=== PATIENT | male | born 1970 | race Caucasian/White ===

== ENCOUNTER 2025-05-15 16:53 | Emergency (ER) | payer BC, SELFPAY ==
--- NOTE | 2025-05-15 16:55 | ED.EYEPROB ---
HPI - Eye Problem General Chief complaint: Eye Problems Stated complaint: eye irritation Source: patient and RN notes reviewed Mode of arrival: ambulatory Limitations: no limitations History of Present Illness HPI Narrative: Patient is a 54-year-old male with complaints of left eye irritation since yesterday. Patient states that he woke up this morning with a large reddened bump to his left upper eyelid along with some crusting to the eye. Patient states that prior to this, he had a little redness noted to bilateral eyes for a couple days. He denies vision changes. Related Data Allergies Allergy/AdvReac Type Severity Reaction Status Date / Time morphine Allergy Mild Rash Verified 05/15/25 17:04 Review of Systems Review of Systems: CONSTITUTIONAL: Denies fever, chills, or sweats. EYES: Reports left eye irritation and discharge. ENT: Denies otalgia and sore throat CARDIOVASCULAR: Denies chest pain, palpitations, or edema. RESPIRATORY: Denies cough or dyspnea. GASTROINTESTINAL: Denies abdominal pain, nausea, vomiting, or diarrhea. GENITOURINARY: Denies dysuria or hematuria. SKIN: Denies rash or itching. MUSCULOSKELETAL: Denies back pain, joint pain, or myalgia. NEUROLOGIC: Denies headache, numbness, or weakness. Pertinent positives per HPI. PMFSH Comments At the time of my signature, I reviewed and agree with the nursing past medical, surgical, social, and family history. There is no relevant family history pertinent to the patient complaint. Exam Narrative: GENERAL: This is a well-nourished, well-developed patient, in no apparent distress. HEAD: normocephalic, atraumatic. EYES: Hordeolum to left upper eyelid. Sclera clear/white. Vision is grossly intact. EARS: External ears normal. Hearing grossly intact. NOSE: External nose normal with no obvious nasal discharge, nares without redness, no rhinorrhea. THROAT: Mucous membranes moist, posterior pharynx clear. NECK: Neck supple, non-tender without lymphadenopathy, masses or thyromegaly. CARDIOVASCULAR: Regular rate and rhythm without murmurs, gallops, or rubs. RESPIRATORY: Clear to auscultation. Breath sounds equal bilaterally. No wheezes, rales, or rhonchi. GASTROINTESTINAL: Abdomen soft, non-tender, nondistended. Bowel sounds are active. No hepato-splenomegaly, or palpable masses. No guarding. SKIN: warm, intact with no suspicious lesions or rash, good texture and turgor. NEURO: awake, alert, and oriented to person, place and time. There were no obvious focal neurologic abnormalities. Course Course Level of Care: Express Care Visit Vital Signs Vital signs: Vital Signs Temperature 97.8 F 05/15/25 17:04 Pulse Rate 72 05/15/25 17:04 Respiratory Rate 18 05/15/25 17:04 Blood Pressure 133/81 05/15/25 17:04 Pulse Oximetry 97 05/15/25 17:04 Oxygen Delivery Room Air 05/15/25 17:04 Temperature 97.8 F 05/15/25 17:04 Pulse Rate 72 05/15/25 17:04 Respiratory Rate 18 05/15/25 17:04 Blood Pressure 133/81 05/15/25 17:04 Pulse Oximetry 97 05/15/25 17:04 Oxygen Delivery Room Air 05/15/25 17:04 Reviewed MDM - Eye Problem MDM Narrative Medical decision making narrative: Eye drops as prescribed. -Do this for 3 to 4 days until all redness and discharge has disappeared. -Cold compresses to the affected eye for comfort -May need warm compresses to remove debris in the morning -When cleaning the eyes used a washcloth/cotton ball in one direction then change washcloths/cotton ball before using it on another eye. -Do not share medicine--do not touch the eye with the medicine -Alternate or take Tylenol or ibuprofen as directed in the bottle for pain -Avoid screen time--television, computer, tablet or phone. Follow-up with PCP or warehouse inventory clerk if condition is not improving in 3-5days or sooner if you have new symptoms/concerns. Differential Diagnosis Differential diagnosis: Likely corneal abrasion, conjunctivitis, acute iritis and other (stye) Critical Care Time Critical Care Time Critical Care Time: No Discharge Plan Discharge Clinical Impression: Hordeolum externum left upper eyelid Patient Disposition: Home Condition: Stable Instructions: Fabiana (ED) Additional Instructions: Eye ointment as prescribed. -Do this for 3 to 4 days until all redness and discharge has disappeared. -Cold compresses to the affected eye for comfort -May need warm compresses to remove debris in the morning -When cleaning the eyes used a washcloth/cotton ball in one direction then change washcloths/cotton ball before using it on another eye. -Do not share medicine--do not touch the eye with the medicine -Alternate or take Tylenol or ibuprofen as directed in the bottle for pain -Avoid screen time--television, computer, tablet or phone. Follow-up with PCP or warehouse inventory clerk if condition is not improving in 3-5days or sooner if you have new symptoms/concerns. Patient Language: Kiswahili Prescriptions: New erythromycin 5 mg/gram (0.5 %) ointment 1 applic LEFT EYE DAILY Qty: 3.5 0RF Follow-up/Referrals: Kim,Mabel Last, CLERK [Primary Care Provider] - Time of Disposition: 17:12
--- OUTSIDE RECORDS SUMMARY | 2025-05-15 16:56 | XMS_ITS | Clinical Summary ---
Author Organization [facility] Address [address] [place] [address] Care Team Providers Care Carbon Paper Interleafer Name Role Phone Mabel Alvarez EDGING MACHINE FEEDER Primary Care Provider Allergies Active Allergy Reactions Criticality Noted Date Comments Morphine Hives,Rash Low 09/12/2013 Medications ferrous sulfate, 65 mg elemental, 325 (65 FE) MG tabletIndication s:Iron deficiency Take 1 tablet (325 mg total) by mouth daily with breakfast. 90 tablet 3 03/20/2025 Active Active Problems Problem Noted Date Diagnosed Date Dyslipidemia 12/31/2023 Obesity (BMI 30-39.9) 12/31/2023 Dermatitis 02/10/2018 Resolved Problems Problem Noted Date Diagnosed Date Resolved Date Wears glasses 02/10/2018 07/13/2020 Mild sleep apnea 08/04/2017 11/15/2020 Rosacea 09/04/2014 12/25/2023 Hyperhidrosis 09/12/2013 12/25/2023 Encounters Date Type Department Care Team Description 03/20/2025 Results Follow-Up [facility] Family & Internal Medicine - [place] [address] [place] [address] Mabel Alvarez NP VITAMIN B12 / FOLATE, IRON SAT PANEL (IRON,IBC,%SAT) 03/08/2025 12:36 PM CDT - 03/08/2025 11:59 PM CDT Hospital Encounter [facility] [address] [place] [address] Mabel Alvarez NP Discharge Disposition: Home or Self Care (Routine Discharge) 03/08/2025 7:30 AM CDT Laboratory Only [address] [address] Mabel Alvarez NP 03/08/2025 Travel 03/07/2025 Results Follow-Up [address] [address] Mabel Alvarez NP TESTOSTERONE, FREE & TOTAL, LIPID PANEL, CBC W/DIFF AUTOMATED, COMPREHENSIVE METABOLIC PANEL 03/01/2025 1:20 PM CDT - 03/01/2025 11:59 PM CDT Hospital Encounter [facility] [address] [place] [id number] Mabel Alvarez NP Discharge Disposition: Home or Self Care (Routine Discharge) 03/01/2025 7:30 AM CDT Laboratory Only [address] [phone] Mabel Alvarez NP 03/01/2025 Travel 02/22/2025 10:00 AM CDT Office Visit [address] [phone] Mabel Alvarez NP Follow Up (Requesting labs ) 02/22/2025 Travel from Last 3 Months Immunizations Immunization Administration Dates Next Due Fluzone 6 Months+ Quad (0.5 mL Prefilled Syringe) 01/02/2020(Deferred: Patient Refused) Influenza (Generic) 09/23/2014 Influenza Adult (Generic) 01/31/2021,01/05/2020 Tdap (Adacel) 01/02/2020 Tdap (Generic) 09/24/2013 Family History Medical History Relation Comments Parkinson's Disease Father No Known Problems Mother Relation Status Comments Father Mother Social History Tobacco Use Types Packs/Day Years Used Date Smoking Tobacco: Former Cigarettes Q uit: 11/02/1995 Smokeless Tobacco: Never Tobacco Cessation:Counseling Given: Not Answered Alcohol Use Standard Drinks/Week Comments Yes 1.7 (1 standard drink = 0.6 oz p ure alcohol) Socially PHQ-2 Answer Date Recorded Patient Health Questionnaire-2 Score 0 02/22/2025 Sex and Gender Information Value Date Recorded Sex Assigned at Male 02/22/2025 9:55 AM CDT Legal Sex Male 7:54 PM CDT Gender Identity Not on file Sexual Orientation Not on file Last Filed Vital Signs Vital Sign Reading Time Taken Comments Blood Pressure 136/88 02/22/2025 9:54 AM CDT Pulse 70 02/22/2025 9:54 AM CDT Temperature 37.1 C (98.8 F) 02/22/2025 9:54 AM CDT Respiratory Rate 18 02/22/2025 9:54 AM CDT Oxygen Saturation 98% 02/22/2025 9:54 AM CDT Inhaled Oxygen Concentration - - Weight 115.7 kg (255 lb) 02/22/2025 9:54 AM CDT Height 190.5 cm (6' 3) 02/22/2025 9:54 AM CDT Body Mass Index 31.87 02/22/2025 9:54 AM CDT Plan of Treatment Upcoming Encounters Date Type Department Care Team (Late st Contact Info) Description 07/04/2025 7:20 AM CDT Office Visit [facility] Family & Internal Medicine - [address] [phone] Mabel Alvarez, LUIGI [id number] [place] [address] Health Maintenance Due Date Last Done Comments Zoster Vaccines (1 of 2) 2022 Annual Physical 02/22/2026 02/22/2025, 12/25/2023, 09/02/2021 COVID-19 Vaccine ( - 2023-2 5 season) 2026 11/09/2020, 10/19/2020 Postponed from 07/03/2024 (Patient Refused) Hepatitis B Vaccines (1 of 3 - 19+ 3-dose series) 02/22/2026 Postponed from 08/02 (Patient/Guardian Refusal) Pneumococcal Vaccine: 50+ Years (1 of 1 - PCV) 02/22/2026 Postponed from 08/02 (Patient/Guardian Refusal) Colorectal Cancer Screening FIT-DNA (3 Years) 01/30/2027 01/31/2024, 01/31/2024, 01/10/2020 DTaP, Tdap and Td Vaccines ( 3 - Td or Tdap) 01/01/2030 01/02/2020, 09/24/2013 Hepatitis C Completed 12/25/2023 PHQ-2 (Physician [place]) Completed 02/22/2025 Meningococcal B Vaccine Aged Out No l onger eligible based on patient's age to complete this topic Meningococcal Vaccine Aged Out No jacoby laura eligible based on patient's age to complete this topic RSV Immunizations Under 20 Months Aged Out No longer eligible b ased on patient's age to complete this topic Procedures Procedure Name Priority Date/Time Associated Diagnosis Comments COLLECTION VENOUS BLOOD VENIPUNCTURE Routine 03/08/2025 7:30 AM CDT Anemia, unspecified type IRON SAT PANEL (IRON,IBC,%SAT) Routine 03/08/2025 7:25 AM CDT Anemia, unspecified type VITAMIN B12 / FOLATE Routine 03/08/2025 7:25 AM CDT Anemia, unspecified type COLLECTION VENOUS BLOOD VENIPUNCTURE Routine 03/01/2025 7:39 AM CDT Encounter for preventative adult health care examination Obesity (BMI 30-39.9) Dyslipidemia Other fatigue COMPREHENSIVE METABOLIC PANEL Routine 03/01/2025 7:30 AM CDT Encounter for preventative adult health care examination Other fatigue Obesity (BMI 30-39.9) CBC W/DIFF AUTOMATED Routine 03/01/2025 7:30 AM CDT Encounter for preventative adult health care examination Other fatigue Obesity (BMI 30-39.9) LIPID PANEL Routine 03/01/2025 7:30 AM CDT Encounter for preventative adult health care examination Dyslipidemia Other fatigue Obesity (BMI 30-39.9) HC TESTOSTERONE FREE-90 Routine 03/01/2025 7:30 AM CDT Encounter for preventative adult health care examination Other fatigue Obesity (BMI 30-39.9) COLOGUARD (EXACT SCIENCE) Routine 01/31/2024 12:20 PM CDT Screening for colorectal cancer HEPATITIS C ANTIBODY Routine 12/25/2023 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 Encounter for hepatitis C screening test for low risk patient from Last 3 Months or Most Recently Relevant to Health Maintenance Results * VITAMIN B12 / FOLATE (03/08/2025 7:25 AM CDT) VITAMIN B12 S/P/B 682 193 - 986 PG/ML 03/08/2025 2:36 PM CDT [facility] FOLATE 15.6 8.6 - 58.9 NG/ML 03/08/2025 2:36 PM CDT [facility] 03/08/2025 7:25 AM CDT us Mabel Alvarez NP LABORATORY Final Result [facility] [address] [place] [id number], [place] [phone] * (ABNORMAL) IRON SAT PANEL (IRON,IBC,%SAT) (03/08/2025 7:25 AM CDT) IRON 141 65 - 175 MCG/DL 03/08/2025 1:40 PM CDT [facility] IRON BINDING CAPACITY 462(H) 250 - 450 MCG/DL 03/08/2025 1:40 PM CDT [facility] IRON SATURATION 31 20 - 55 % 1:40 PM CDT [facility] 03/08/2025 7:25 AM CDT us Mabel Alvarez NP LABORATORY Final Result [facility] [address] [place] [address], [place] [phone] * TESTOSTERONE, FREE & TOTAL (03/01/2025 7:30 AM CDT) [facility] TESTOSTERONE TOTAL 677 250 - 1,100 ng/dL 03/05/2025 12:05 PM CDT [facility] Comment: For additional information, please refer to http://education.[employer]/faq/ FuxnwHjemnyygyvkjBRTGIDJTN253 (This link is being provided for informational/ educational purposes only.) This test was developed and its analytical performance characteristics have been determined by [facility] [place], [place]. It has not been cleared or approved by the U.S. Food and Drug Administration. This assay has been validated pursuant to the CLIA regulations and is used for clinical purposes. TESTOSTERONE FREE 86.0 35.0 - 155.0 pg/mL 03/05/2025 12:05 PM CDT [facility] Comment: This test was developed and its analytical performance characteristics have been determined by [facility] [place] [place]. It has not been cleared or approved by the U.S. Food and Drug Administration. This assay has been validated pursuant to the CLIA regulations and is used for clinical purposes. Test Performed by [facility], [facility], [address] [place] [address] Tomi Peterson M.D., Ph.D., Director of Laboratories , CLIA [id number] 03/01/2025 7:30 AM CDT us Mabel Alvarez NP LABORATORY Final Result [address] [id number] [place], [place] , [place] [phone] * (ABNORMAL) COMPREHENSIVE METABOLIC PANEL (03/01/2025 7:30 AM CDT) [facility] GLUCOSE 98 70 - 99 MG/DL 03/01/2025 2:19 PM CDT [facility] BUN 15 7 - 18 MG/DL 03/01/2025 2:19 PM T [facility] CREATININE S/P/B 1.17 0.7 - 1.3 MG/DL 03/01/2025 2:19 PM T [facility] SODIUM S/P/B 137 136 - 145 MMOL/L 03/01/2025 2:19 PM T [facility] POTASSIUM S/P/B 4.4 3.5 - 5.1 MMOL/L 03/01/2025 2:19 PM T [facility] CHLORIDE S/P/B 102 100 - 108 MMOL/L 03/01/2025 2:19 PM T [facility] CO2 25.5 21 - 32 MMOL/L 03/01/2025 2:19 PM T [facility] CALCIUM S/P/B 9.1 8.5 - 10.1 MG/DL 03/01/2025 2:19 PM T [facility] BILIRUBIN TOTAL S/P/B 0.5 0.2 - 1.2 MG/DL 03/01/2025 2:19 PM T [facility] TOTAL PROTEIN S/P/B 7.3 6.4 - 8.2 G/DL 03/01/2025 2:19 PM T [facility] ALBUMIN S/P/B 4.1 3.4 - 5.0 G/DL 03/01/2025 2:19 PM T [facility] AST 22 15 - 37 U/L 03/01/2025 2:19 PM T [facility] ALT 36 16 - 60 U/L 03/01/2025 2:19 PM CDT [facility] ALKALINE PHOSPHATASE S/P/B 79 50 - 136 U/L 03/01/2025 2:19 PM CDT [facility] ANION GAP 9.5 5 - 15 MMOL/L 03/01/2025 2:19 PM CDT [facility] BUN CREATININE RATIO 12.8 6 - 26 03/01/2025 2:19 PM T [facility] A/G RATIO 1.3 1.0 - 2.0 RATIO 03/01/2025 2:19 PM CDT [facility] GFR ESTIMATE 75(L) >90 ML/MIN/1.7 3 M2 03/01/2025 2:19 PM CDT [facility] Comment: NOTE: eGFR is not calculated for patients <18 years of age. This is an estimated GFR calculation using the new CKD EPI creatinine equation without race and so does not require a correction factor for race. This estimated GFR should not be used for calculating drug doses. 03/01/2025 7:30 AM CDT us Mabel Alvarez NP LABORATORY Final Result [facility] [address] [place] [address], [place] [phone] * (ABNORMAL) LIPID PANEL (03/01/2025 7:30 AM CDT) CHOLESTEROL 189 <200.0 MG/DL 03/01/2025 2:19 PM CDT [facility] TRIGLYCERIDES 92 <150 MG/DL 03/01/2025 2:19 PM CDT [facility] HDL 46 >40.0 MG/DL 03/01/2025 2:19 PM CDT [facility] LDL (CALCULATED) 125(H) <100 MG/DL 03/01/2025 2:19 PM CDT [facility] NON HDL CHOLESTEROL 143(H) <130 MG/DL 03/01/2025 2:19 PM CDT [facility] CHOL/HDL RATIO 4.1 0.0 - 4.5 03/01/2025 2:19 PM CDT [facility] VLDL CALCULATION 18 5 - 55 MG/DL 03/01/2025 2:19 PM CDT [facility] LIPID INTERPRETATION 03/01/2025 2:19 PM CDT [facility] Comment: NIH CONCENSUS REPORT RECOMMENDATIONS: ADULT CHILD LOW RISK: CHOLESTEROL <200 <170 TRIGLYCERIDE <150 --- HDL >=60 --- LDL <100 <110 BORDERLINE: CHOLESTEROL 200-239 170-199 TRIGLYCERIDE 150-199 --- HDL 40-59 --- LDL 100-159 110-129 HIGH RISK: CHOLESTEROL >=240 >=200 TRIGLYCERIDE >=200 --- HDL <40 --- LDL >=160 >=130 03/01/2025 7:30 AM CDT us Mabel Alvarez NP LABORATORY Final Result [facility] [address] [place] [id number], [place] [phone] * (ABNORMAL) CBC W/DIFF AUTOMATED (03/01/2025 7:30 AM CDT) WBC 7.70 4.4 - 11.0 x10'3/uL 03/01/2025 2:13 PM CDT [facility] RBC 5.08 4.50 - 5.90 x10'6/uL 03/01/2025 2:13 PM CDT [facility] HGB 11.4(L) 14.0 - 17.5 G/DL 03/01/2025 2:13 PM CDT [facility] HCT 37.3(L) 41.5 - 50.4 % 03/01/2025 2:13 PM CDT [facility] MCV 73.4(L) 80.0 - 96.0 FL 03/01/2025 2:13 PM CDT [facility] MCH 22.4(L) 26.5 - 31.4 PG 03/01/2025 2:13 PM CDT [facility] MCHC 30.6(L) 31.9 - 34.8 G/DL 03/01/2025 2:13 PM CDT [facility] RDW 15.7(H) 12.3 - 14.3 % 03/01/2025 2:13 PM CDT [facility] PLT 353 151 - 353 x10'3/uL 03/01/2025 2:13 PM CDT [facility] MPV 10.2 9.7 - 11.9 FL 03/01/2025 2:13 PM CDT [facility] RBC MORPHOLOGY NORMAL 03/01/2025 2:13 PM CDT [facility] PLT MORPH. NORMAL 03/01/2025 2:13 PM CDT [facility] WBC MORPHOLOGY NORMAL 03/01/2025 2:13 PM CDT [facility] LYMPHOCYTES % 32.1 15.8 - 45.0 % 03/01/2025 2:13 PM CDT [facility] NEUTROPHILS % 54.8 42.1 - 71.9 % 03/01/2025 2:13 PM CDT [facility] MONOCYTES % 8.7 5.7 - 12.5 % 03/01/2025 2:13 PM CDT [facility] EOSINOPHILS 3.2 0.0 - 5.6 % 03/01/2025 2:13 PM CDT [facility] BASOPHILS 0.9 0.0 - 1.3 % 03/01/2025 2:13 PM CDT [facility] ABS. NEUTROPHILS 4.22 1.40 - 6.00 x10'3/uL 03/01/2025 2:13 PM CDT [facility] IMMATURE GRANS % 0.3 0.0 - 0.5 % 03/01/2025 2:13 PM CDT [facility] ABS. LYMPHOCYTES 2.47 0.80 - 4.70 x10'3/uL 03/01/2025 2:13 PM CDT [facility] 03/01/2025 7:30 AM CDT Mabel Alvarez NP LABORATORY Final Result [facility] [address] [place] [address], * COLOGUARD (EXACT SCIENCE) (01/31/2024 12:20 PM CDT) COLOGUARD RESULT Negative Negative [facility] (CLIA #:[id number]) Comment: NEGATIVE TEST RESULT. A negative Cologuard result indicates a low likelihood that a colorectal cancer (CRC) or advanced adenoma (adenomatous polyps with more advanced pre-malignant features) is present. The chance that a person with a negative Cologuard test has a colorectal cancer is less than 1 in 1500 (negative predictive value >99.9%) or has an advanced adenoma is less than 5.3% (negative predictive value 94.7%). These data are based on a prospective cross-sectional study of 10,000 individuals at average risk for colorectal cancer who were screened with both Cologuard and colonoscopy. (Jose Antonio Betancourt al, N Engl J Med 2014;370(14):0600-1606) The normal value (reference range) for this assay is negative. COLOGUARD RE-SCREENING RECOMMENDATION: Periodic colorectal cancer screening is an important part of preventive healthcare for asymptomatic individuals at average risk for colorectal cancer. Following a negative Cologuard result, the [place] [employer] and U.S. Multi-Society Task Force screening guidelines recommend a Cologuard re-screening interval of 3 years. References: [place] [employer] Guideline for Colorectal Cancer Screening: https://www.cancer.org/cancer/chntn-ujrtdw-kpxkij/gjwsnukfa-tntawvmgs-kcqhnrc/ac s-rec ommendations.html.; Gaurav DK, Nancy CR, Xavier AngelesK, Colorectal Cancer Screening: Recommendations for Physicians and Patients from the U.S. Multi-Society Task Force on Colorectal Cancer Screening , Am J Gastroenterology 2017; 112:8162-7493. TEST DESCRIPTION: Composite algorithmic analysis of stool DNA-biomarkers with hemoglobin immunoassay. Quantitative values of individual biomarkers are not reportable and are not associated with individual biomarker result reference ranges. Cologuard is intended for colorectal cancer screening of adults of either sex, 45 years or older, who are at average-risk for colorectal cancer (CRC). Cologuard has been approved for use by the U.S. FDA. The performance of Cologuard was established in a cross sectional study of average-risk adults aged 50-84. Cologuard performance in patients ages 45 to 49 years was estimated by sub-group analysis of near-age groups. Colonoscopies performed for a positive result may find as the most clinically significant lesion: colorectal cancer [4.0%], advanced adenoma (including sessile serrated polyps greater than or equal to 1cm diameter) [20%] or non- advanced adenoma [31%]; or no colorectal neoplasia [45%]. These estimates are derived from a prospective cross-sectional screening study of 10,000 individuals at average risk for colorectal cancer who were screened with both Cologuard and colonoscopy. (Jose Antonio Betancourt al, N Engl J Med 2014;370(14):1463-3446.) Cologuard may produce a false negative or false positive result (no colorectal cancer or precancerous polyp present at colonoscopy follow up). A negative Cologuard test result does not guarantee the absence of CRC or advanced adenoma (pre-cancer). The current Cologuard screening interval is every 3 years. ([place] [employer] and U.S. Multi-Society Task Force). Cologuard performance data in a 10,000 patient pivotal study using colonoscopy as the reference method can be accessed at the following location: www.[employer]/results. Additional description of the Cologuard test process, warnings and precautions can be found at www.cologuard.com. STOOL STOOL SPECIMEN / Unknown 01/31/2024 12:20 PM CDT 02/03/2024 1:31 PM CDT Mabel Alvarez EDGING MACHINE FEEDER BODY FLUIDS AND STOOLS ORDER CATY Final Result Performing Organization Address City/[facility] Co de Phone Number [facility] ([address] [facility]) [address] [place] [address], [employer] (CLIA #:[id number]) [address] [place] [address] * HEPATITIS C AB ([facility] ONLY) (12/25/2023 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) HEPATITIS C AB NON-REACTI VE NON-REACTI VE 12/25/2023 1:54 PM METAL STAMPING MACHINE OPERATOR [facility] 12/25/2023 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 Mabel Alvarez NP LABORATORY Final Result Performing Organization Address City/[facility] Co de Phone Number [facility] [address] [id number], from Last 3 Months or Most Recently Relevant to Health Maintenance Insurance Care Teams [employer] Interleafer Relationship Specialty [place] [address] [place] [address] PCP - General Nurse Practitioner Family 02/22/25
--- OUTSIDE RECORDS SUMMARY | 2025-05-15 16:56 | XMS_ITS | Encounter Summary ---
Author Organization [facility] Address [address] [place] [address] Care Team Providers Care Professor Of Criminal Justice Name Role Phone Renetta Crowley MD Primary Care Provider + [phone] Mabel Alvarez NP Primary Care Provider + [phone] Encounter Details Date Type Department Care Team (Late st Contact Info) Description 11/02/2020 MILIt Message Enc [facility] Family & Internal Medicine [facility] [id number] [place] [address] [place] [id number] [place] [address] RE: Question Social History Tobacco Use Types Packs/Day Years Used Date Smoking Tobacco: Former Cigarettes Q uit: 1995 Smokeless Tobacco: Never Alcohol Use Standard Drinks/Week Comments Yes 0 (1 standard drink = 0.6 oz pur e alcohol) Socially PHQ-2 Answer Date Recorded PHQ-2 Score 0 01/02/2020 Sex and Gender Information Value Date Recorded Sex Assigned at Male 02/22/2025 9:55 AM CDT Legal Sex Male 7:54 PM CDT Gender Identity Not on file Sexual Orientation Not on file documented as of this encounter Progress Notes * Mabel Frias RN - 11/05/2020 8:08 AM CST Printed to discuss with Dr. Jackson PHONE DIAPHRAGM ASSEMBLER documented in this encounter Plan of Treatment Upcoming Encounters Date Type Department Care Team (Late st Contact Info) Description 07/04/2025 7:20 AM CDT Office Visit [facility] Family & Internal Medicine - [place] [address] [place] [address] Mabel Alvarez, LEVEL VIAL CURVATURE GAUGER [address] [facility] [address] [place] [address] documented as of this encounter Visit Diagnoses Not on filedocumented in this encounter Care Teams Professor Of Criminal Justice Relationship Specialty Start Date End Date Renetta Crowley MD PCP - General INTERNAL MEDICINE 01/02/20 02/05/23 Mabel Alvarez, LUIGI [address] [facility] [address] [place] [address] PCP - General Nurse Practitioner Family 02/22/25 documented as of this encounter
--- OUTSIDE RECORDS SUMMARY | 2025-05-15 16:56 | XMS_ITS | Encounter Summary ---
Author Organization [facility] Address [address] [place] [address] Care Team Providers Care Web Page Designer Name Role Phone Haile Casey MD Primary Care Provider [phone] Renetta Crowley MD Primary Care Provider + [phone] Mabel Alvarez NP Primary Care Provider + [phone] Encounter Details Date Type Department Care Team (Late Contact Info) Description 06/01/2017 Abstract [facility] [address] [place], [place] [id number] , Ronny Gerard MD Social History Tobacco Use Types Packs/Day Years Used Date Smoking Tobacco: Never Assessed Sex and Gender Information Value Date Recorded Sex Assigned at Male 02/22/2025 9:55 AM CDT Legal Sex Male 7:54 PM CDT Gender Identity Not on file Sexual Orientation Not on file documented as of this encounter Plan of Treatment Upcoming Encounters Date Type Department Care Team (Late Contact Info) Description 07/04/2025 7:20 AM CDT Office Visit [facility] Family & Internal Medicine [facility] [address] [place] [address] [place] [address] [address] documented as of this encounter Visit Diagnoses Not on filedocumented in this encounter Care Teams Web Page Designer Relationship Specialty [place] [address] [place] [address] PCP - General FAMILY PRACTICE 11/01/18 01/01/20 [place] [address] [place] [address] PCP - General INTERNAL MEDICINE 01/02/20 02/05/23 [place] [address] [address] [facility] [address] [place] [address] PCP - General Nurse Practitioner Family 02/22/25 documented as of this encounter
--- OUTSIDE RECORDS SUMMARY | 2025-05-15 16:56 | XMS_ITS | Encounter Summary ---
Author Organization [facility] Address [address] [place] [address] Care Team Providers Care Tree And Shrub Technician Name Role Phone Mabel Alvarez NP Primary Care Provider [phone] Encounter Details Date Type Department Care Team (Late st Contact Info) Description 03/20/2025 Results Follow-Up [facility] Family & Internal Medicine [facility] [id number] [place] [address] [place] [address] [facility] [address] [place] [address] VITAMIN B12 / FOLATE, IRON SAT PANEL (IRON,IBC,%SAT) Social History Tobacco Use Types Packs/Day Years Used Date Smoking Tobacco: Former Cigarettes Q uit: 11/02/1995 Smokeless Tobacco: Never Alcohol Use Standard Drinks/Week Comments Yes 1.7 [...] Description 07/04/2025 7:20 AM CDT Office Visit [facility] Family & Internal Medicine [facility] [address] [place] [address] [place] [address] [address] [place] [address] documented as of this encounter Visit Diagnoses Diagnosis Iron deficiency- Primary Iron deficiency anemia, unspecified documented in this encounter Additional Health Concerns Assessment Noted Time PHQ-9 Depression Total Score: 0 02/13/20 22 8:48 AM CDT documented as of this encounter Care Teams Tree And Shrub Technician Relationship Specialty [place] [address] [employer] [address] [place] [address] PCP - General Nurse Practitioner Family 02/22/25 documented as of this encounter
--- OUTSIDE RECORDS SUMMARY | 2025-05-15 16:56 | XMS_ITS | Encounter Summary ---
Author Organization [facility] Address [address] [place] [address] Care Team Providers Care Formulation Technician Name Role Phone Renetta Crowley MD Primary Care Provider + [phone] Mabel Alvarez NP Primary Care Provider + [phone] Encounter Details Date Type Department Care Team (Late Contact Info) Description 01/09/2020 Kaggle Message Enc [facility] Family & Internal Medicine [address] [address] [facility] Provider Social History Tobacco Use Types Packs/Day Years [...] Description 07/04/2025 7:20 AM CDT Office Visit [facility] Family & Internal [address] [address] Mabel Alvarez NP [address] [place] [address] documented as of this encounter Visit Diagnoses Not on filedocumented in this encounter Care Teams Formulation Technician Relationship Specialty Start Date End Date Renetta Crowley MD PCP - General INTERNAL MEDICINE 01/02/20 02/05/23 [place] [address] [address] PCP - General Nurse Practitioner Family 02/22/25 documented as of this encounter
[2025-05-15 17:04] VITALS: BP 133/81; PULSE 72; RESP 18; TEMP 36.6; O2SAT 97
== END 2025-05-15 17:15 | disposition home or self-care (01) ==
PROVIDERS: Emergency Provider Nurse Practitioner; PCP Nurse Practitioner Family
DX: H00.014 Hordeolum externum left upper eyelid (principal)
CPT/HCPCS: 99203; G0463